=== PATIENT | male | born 1965 | race African-American/Black ===

== ENCOUNTER 2016-09-01 18:37 | Emergency (ER) | payer MEDICAID ==
--- NOTE | 2016-09-01 18:54 | ER Document Report ---
ED Medical Screen (RME) - General Stated Complaint: ABDOMINAL PAIN Notes: patient is a51 year old male with umbilical to LLQ pain that started 5 hours ago with n/v/d. still has his appendix. tenderness to palpation of the LLQ but not RLQ. no rebound tenderness I have greeted and performed a rapid initial assessment of this patient. A comprehensive ED assessment and evaluation of the patient, analysis of test results and completion of the medical decision making process will be conducted by additional ED providers. TRAVEL OUTSIDE OF THE [place] IN LAST 30 DAYS: No Past Medical History - Past Medical History Cardiac Medical History: Reports: Hx Hypertension Pulmonary Medical History: Reports: Hx COPD Psychiatric Medical History: Reports: Hx Depression
[2016-09-01] MEDS ORDERED: NORMAL SALINE 1000 ML 1,000 ML IV ONE (19:10)
[2016-09-01] MEDS ORDERED: LOPERAMIDE HCL 2 MG CAPSULE PO ONE (19:11)
[2016-09-01] MEDS ORDERED: ONDANSETRON HCL INJ/PF 4 MG/2 ML SDV IV ONE (19:11)
[2016-09-01 19:18] LABS: HEMATOCRIT 43.1 % (37.9-51.0); HEMOGLOBIN 14.5 g/dL (13.5-17.0); HGB HCT DIFFERENCE 0.4; MEAN CORPUSCULAR HEMOGLOBIN 29.9 pg (27.0-33.4); MEAN CORPUSCULAR HGB CONC 33.6 g/dL (32.0-36.0); MEAN CORPUSCULAR VOLUME 89 fl (80-97); RED BLOOD COUNT 4.84 10^6/uL (4.35-5.55); RED CELL DISTRIBUTION WIDTH 13.6 % (11.5-14.0)
[2016-09-01 19:39] LABS: BASOPHILS % (MANUAL) 0 % (0-2); EOSINOPHILS % (MANUAL) 1 % (0-6); LYMPHOCYTES % (MANUAL) 5 % (13-45); TOTAL CELLS COUNTED 100
--- NOTE | 2016-09-01 19:39 | ER Document Report ---
ED General - General Chief Complaint: Abdominal Pain Stated Complaint: ABDOMINAL PAIN Notes: Patient is a 51-year-old male with past medical history of anxiety and depression who presents with nausea, vomiting, diarrhea, generalized abdominal discomfort. States that he started having vomiting and diarrhea earlier today and has continued since that time. He has not tried anything to improve his symptoms. Nothing worsens his symptoms. Multiple sick contacts with similar illness. Described the abdominal pain is a generalized, cramping pain. This started after multiple episodes of diarrhea and vomiting. Pain is mild in nature. Nothing improves or worsens the pain. No prior history of abdominal surgeries. He has not seen his primary care physician regarding today's concerns. TRAVEL OUTSIDE OF THE [place] IN LAST 30 DAYS: No - Related Data Allergies/Adverse Reactions: No Known Allergies Allergy (Unverified 09/01/16 20:43) Past Medical History - General Information source: Patient - Social History Smoking Status: Current Every Day Smoker Chew tobacco use (# tins/day): No Frequency of alcohol use: None Drug Abuse: None Lives with: Family Family History: Reviewed & Not Pertinent Patient has suicidal ideation: No Patient has homicidal ideation: No - Past Medical History Cardiac Medical History: Reports: Hx Hypertension Pulmonary Medical History: Reports: Hx COPD Renal/ Medical History: Denies: Hx Peritoneal Dialysis Psychiatric Medical History: Reports: Hx Depression Review of Systems - Review of Systems Notes: Constitutional: Negative for fever. HENT: Negative for sore throat. Eyes: Negative for visual changes. Cardiovascular: Negative for chest pain. Respiratory: Negative for shortness of breath. Gastrointestinal: Positive for abdominal pain, vomiting and diarrhea. Genitourinary: Negative for dysuria. Musculoskeletal: Negative for back pain. Skin: Negative for rash. Neurological: Negative for headaches, weakness or numbness. 10 point ROS negative except as marked above and in HPI. Physical Exam - Vital signs Vitals: Temp Pulse Resp BP Pulse Ox 98.2 F 105 H 16 104/65 97 09/01/16 18:55 09/01/16 18:55 09/01/16 18:55 09/01/16 18:55 09/01/16 18:55 Interpretation: Tachycardic Notes: PHYSICAL EXAMINATION: GENERAL: Well-appearing, well-nourished and in no acute distress. HEAD: Atraumatic, normocephalic. EYES: Pupils equal round and reactive to light, extraocular movements intact, sclera anicteric, conjunctiva are normal. ENT: nares patent, oropharynx clear without exudates. Moist mucous membranes. NECK: Normal range of motion, supple without lymphadenopathy LUNGS: Breath sounds clear to auscultation bilaterally and equal. No wheezes rales or rhonchi. HEART: Regular rate and rhythm without murmurs ABDOMEN: Soft, nontender, normoactive bowel sounds. No guarding, no rebound. No masses appreciated. EXTREMITIES: Normal range of motion, no pitting or edema. No cyanosis. NEUROLOGICAL: No focal neurological deficits. Moves all extremities spontaneously and on command. PSYCH: Normal mood, normal affect. SKIN: Warm, Dry, normal turgor, no rashes or lesions noted. Course - Re-evaluation Re-evalutation: 09/01/16 19:39 Presentation of an overall well-appearing patient in no acute distress with complaints of nausea, vomiting, diarrhea. This is consistent with likely viral gastroenteritis. Patient has no abdominal tenderness on exam and specifically no tenderness in the RLQ, LLQ, RUQ. Overall well hydrated on exam. Able to tolerate oral intake here in the emergency department. Low clinical suspicion for any acute life-threatening etiology based on exam and history including acute cholecystitis, SBO, appendicitis, nephrolithiasis, or pylonephritis. CMP without evidence of acute hepatitis or significant dehydration. A CBC was obtained in triage: I did not believe this test was diagnostically useful. It does incidentally show a mild leukocytosis of 15. I do not believe this is clinically significant as patient does not have any clinical history to suggest a acute intra-abdominal pathology suspect this is secondary to patient's nausea , vomiting, and enteritis. At this time will discharge with return precautions and follow-up recommendations. Verbal discharge instructions given a the bedside and opportunity for questions given. Medication warnings reviewed. Patient is in agreement with this plan and has verbalized understanding of return precautions and the need for primary care follow-up in the next 24-72 hours. - Vital Signs Vital signs: Temp Pulse Resp BP Pulse Ox 98.2 F 91 15 127/74 H 99 09/01/16 21:40 09/01/16 21:40 09/01/16 21:40 09/01/16 21:40 09/01/16 21:40 - Laboratory Result Diagrams: 09/01/16 19:00 02/09/17 19:00 Laboratory results interpreted by me: 09/01/16 09/01/16 19:00 19:00 WBC 15.0 H Seg Neuts % (Manual) 85 H Lymphocytes % (Manual) 5 L Abs Neuts (Manual) 12.8 H Sodium 145.7 H Glucose 121 H Calcium 10.5 H Total Protein 8.3 H Discharge - Discharge Clinical Impression: Vomiting and diarrhea Condition: Good Disposition: HOME, SELF-CARE Additional Instructions: Your symptoms are likely due to a viral illness and should resolve in the next several days. You can take [id number] loperamide also known as Imodium as needed for diarrhea per box instructions. Continue to stay hydrated with plenty of solution such as Gatorade or Pedialyte. You are being prescribed Zofran to take as needed for nausea and vomiting. Please return if you develop severe abdominal pain, pass out, become unable to tolerate any oral fluids for 12 more hours, or any other symptoms that are concerning to you.
[2016-09-01 19:40] LABS: TOXIC GRANULATION SLIGHT
[2016-09-01 19:46] LABS: ALANINE AMINOTRANSFERASE 26 U/L (21-72); ALBUMIN 4.3 g/dL (3.5-5.0); ALKALINE PHOSPHATASE 91 U/L (38-126); ANION GAP 14 (5-19); ASPARTATE AMINO TRANSFERASE 25 U/L (17-59); BILIRUBIN,TOTAL 0.8 mg/dL (0.2-1.3); BLOOD UREA NITROGEN 12 mg/dL (7-20); CALCIUM 10.5 mg/dL (8.4-10.2); CARBON DIOXIDE 26 mmol/L (22-30); CHLORIDE 106 mmol/L (98-107); CREATININE RESULT 1.05 mg/dL (0.52-1.25); GLUCOSE 121 mg/dL (75-110); LIPASE 56.2 U/L (23-300); POTASSIUM 3.9 mmol/L (3.6-5.0); SODIUM 145.7 mmol/L (137-145); TOTAL PROTEIN 8.3 g/dL (6.3-8.2)
[2016-09-01] MEDS ORDERED: ONDANSETRON ODT 4 MG TAB (6 TAB/DSPK) PO PRN (20:02)
[2016-09-01 21:54] VITALS: BP 127/74
== END 2016-09-01 21:45 | disposition home or self-care (01) ==
LOC: ER 18:37
DX: R11.10 Vomiting, unspecified (principal); R19.7 Diarrhea, unspecified; R10.84 Generalized abdominal pain; F17.200 Nicotine dependence, unspecified, uncomplicated; I10 Essential (primary) hypertension; J44.9 Chronic obstructive pulmonary disease, unspecified
CPT/HCPCS: 99284; 96361; 96374; 36415; 83690; 85025; 80053; J3490; J2405; J7030

== ENCOUNTER 2016-10-22 20:01 | Emergency (ER) | payer MEDICAID ==
[2016-10-22] MEDS ORDERED: ASPIRIN 81 MG TABLET, CHEWABLE PO ONE (20:57)
[2016-10-22] MEDS ORDERED: OXYCODONE-ACETAMINOPHEN 5-325 MG TABLET PO ONE (22:44)
--- NOTE | 2016-10-22 22:48 | ER Document Report ---
ED Extremity Problem, Upper - General Chief Complaint: Arm Pain Stated Complaint: ARM PAIN Mode of Arrival: Ambulatory Information source: Patient Notes: 51-year-old male presents to the emergency department complaining of right arm pain. Patient reports onset of posterior upper right arm pain that radiates up to his posterior shoulder and right trapezius area. States pain began approximately one week ago but has worsened over the last 2 days. 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 States pain is worse with movement of right shoulder/arm and reports associated shortness of breath and right-sided chest pain and pain is at its worse. Denies fever, nausea or vomiting, hemoptysis, or paresthesias. TRAVEL OUTSIDE OF THE [place] IN LAST 30 DAYS: No - HPI Patient complains to provider of: Right, Arm, Shoulder Onset: Last week Recent injury: No Quality of pain: Achy, Sharp Severity of pain: Moderate, Persistent Pain Level: 4 Exacerbated by: Movement Relieved by: Rest, Positioning Similar symptoms previously: No Recently seen / treated by doctor: No - Related Data Allergies/Adverse Reactions: No Known Allergies Allergy (Verified 10/22/16 20:03) Past Medical History - General Information source: Patient - Social History Smoking Status: Current Every Day Smoker Chew tobacco use (# tins/day): No Frequency of alcohol use: Social Drug Abuse: None Lives with: Family Family History: Reviewed & Not Pertinent - Past Medical History Cardiac Medical History: Reports: Hx Hypertension Pulmonary Medical History: Reports: Hx COPD Renal/ Medical History: Denies: Hx Peritoneal Dialysis Psychiatric Medical History: Reports: Hx Depression Surgical Hx: Negative - Immunizations Hx Diphtheria, Pertussis, Tetanus Vaccination: Yes Review of Systems - Review of Systems Constitutional: No symptoms reported EENT: No symptoms reported Cardiovascular: See HPI Respiratory: See HPI Gastrointestinal: No symptoms reported Genitourinary: No symptoms reported Male Genitourinary: No symptoms reported Musculoskeletal: See HPI Skin: No symptoms reported Hematologic/Lymphatic: No symptoms reported Neurological/Psychological: No symptoms reported -: Yes All other systems reviewed and negative Physical Exam - Vital signs Vitals: Temp Pulse Resp BP Pulse Ox 98.7 F 85 18 135/84 H 99 10/22/16 20:03 10/22/16 20:03 10/22/16 20:03 10/22/16 20:03 10/22/16 20:03 - General General appearance: Appears well, Alert In distress: None - HEENT Head: Normocephalic, Atraumatic Eyes: Normal Pupils: PERRL - Respiratory Respiratory status: No respiratory distress Chest status: Tender, Pain on movement. No: Nontender, Chest mass, Ecchymosis, No pleuritic chest pain, Pain with cough, Pain with deep breathing, Wounds, Accessory muscle use, Prolonged expirations, Splinting, Other Breath sounds: Normal - CTAB Chest palpation: Tender - Mild tenderness to palpation to anterior right upper chest wall. No deformity, instability, crepitus, or bruising.. No: Flail segment, [place] frothy sputum, Purulent sputum, Subcutaneous emphysema, Sucking chest wound, Ecchymosis, Wounds, Other - Cardiovascular Rhythm: Regular Heart sounds: Normal auscultation Murmur: No Pulses: Normal: Radial Normal capillary refill: Yes - Abdominal Inspection: Normal Distension: No distension Bowel sounds: Normal Tenderness: Nontender Organomegaly: No organomegaly - Back Back: Normal, Nontender - Extremities General upper extremity: Normal inspection, Nontender, Normal color, Normal ROM , Normal strength, Normal temperature. No: Edema General lower extremity: Normal inspection, Nontender, Normal color, Normal ROM , Normal strength, Normal temperature, Normal weight bearing. No: Tender, Edema Shoulder: Tender - Tenderness to palpation to anterior and posterior right shoulder and right posterior tricep area as well as right superior trapezius musculature. Patient reports reproduced pain with palpation is the pain he has been feeling during this past week. Distal neurovascular function intact. No swelling, erythema, warmth, bruising, deformity, or instability., Limited ROM - Full but painful range of motion.. No: Normal, Nontender, Abrasion, Deformity, Dislocation, Ecchymosis, Instability, Laceration, Other Elbow: Normal, Nontender Forearm: Normal, Nontender Wrist: Normal, Nontender Hand: Normal, Nontender - Neurological Neuro grossly intact: Yes Cognition: Normal Orientation: AAOx4 [place] Coma Scale Eye Opening: Spontaneous [place] Coma Scale Verbal: Oriented [place] Coma Scale Motor: Obeys Commands [place] Coma Scale Total: 15 Speech: Normal Motor strength normal: LUE, RUE, LLE, RLE Sensory: Normal - Skin Skin Temperature: Warm Skin Moisture: Dry Skin Color: Normal Course - Re-evaluation Re-evalutation: 10/23/16 01:54 Pt hemodynamically stable, in no distress, afebrile. Pt's presentation and physical exam findings suggestive of non-specific musculoskeletal etiology. Noted to have T-wave inversion in anterior leads on EKG before and after pain control. Labs unremarkable including negative set of cadiac enzymes. Chest and shoulder xray show no acute or significant abnormality. Pt presentation not suggestive of HI, pulmonary embolus, or other emergent pulmonary or cardiovascular etiology at this time. pt appears stable for discharge and agrees with home care, follow-up, and ED return precautions. Pt presentation and findings were discussed with ED physician Dr. Kilpatrick who concurs with evaluation and treatment plan. - Vital Signs Vital signs: Temp Pulse Resp BP Pulse Ox 97.8 F 74 16 161/67 H 100 10/23/16 02:13 10/23/16 02:13 10/23/16 02:13 10/23/16 02:13 10/23/16 02:13 - Laboratory Result Diagrams: 10/22/16 22:47 10/22/16 22:47 Laboratory results interpreted by me: 10/22/16 10/22/16 22:47 22:47 Hgb 13.3 L RDW 14.2 H Glucose 123 H ALT 19 L - Diagnostic Test Radiology reviewed: Image reviewed, Reports reviewed - EKG Interpretation by Tx EKG shows normal: Sinus rhythm, [place], Intervals, QRS Complexes, ST-T Waves - T wave inversions in anterior leads Rate: Normal Rhythm: NSR When compared to previous EKG there are: Previous EKG unavailable Discharge - Discharge Clinical Impression: Right arm pain Condition: Stable Disposition: HOME, SELF-CARE Instructions: Arm Pain, Nonspecific ([facility]), Anti-Inflammatory Medication ([facility]), Muscle Relaxers ([facility]), Electrogram Abnormality ([facility]) Additional Instructions: Follow-up with your primary care provider tomorrow as discussed. Return to the emergency department for any worsening symptoms or concerns. Prescriptions: Methocarbamol [Robaxin 500 mg Tablet] 500 mg PO Q8HP PRN #10 tablet PRN Reason: Naproxen 500 mg PO BIDP PRN #10 tablet PRN Reason: Forms: Elevated Blood Pressure Referrals: LASHONDA AZLU MD [Primary Care Provider] - 10/24/16
[2016-10-22 23:13] LABS: ABSOLUTE BASOPHILS # (AUTO) 0.1 10^3/uL (0.0-0.2); ABSOLUTE EOSINOPHILS # (AUTO) 0.1 10^3/uL (0.0-0.6); ABSOLUTE LYMPHOCYTES (AUTO) 2.4 10^3/uL (0.5-4.7); ABSOLUTE MONOCYTES (AUTO) 0.6 10^3/uL (0.1-1.4); ABSOLUTE NEUT (AUTO) 3.2 10^3/uL (1.7-8.2); BASOPHILS % (AUTO) 0.8 % (0-2); EOSINOPHILS % (AUTO) 1.5 % (0-6); HEMATOCRIT 39.1 % (37.9-51.0); HEMOGLOBIN 13.3 g/dL (13.5-17.0); HGB HCT DIFFERENCE 0.8; LYMPHOCYTES % (AUTO) 37.8 % (13-45); MEAN CORPUSCULAR HGB CONC 33.9 g/dL (32.0-36.0); MEAN CORPUSCULAR VOLUME 88 fl (80-97); MONOCYTES % (AUTO) 9.4 % (3-13); RED BLOOD COUNT 4.42 10^6/uL (4.35-5.55); RED CELL DISTRIBUTION WIDTH 14.2 % (11.5-14.0); SEGMENTED NEUTROPHILS % (AUTO) 50.5 % (42-78); WHITE BLOOD COUNT 6.4 10^3/uL (4.0-10.5)
[2016-10-22 23:44] LABS: ALANINE AMINOTRANSFERASE 19 U/L (21-72); ALBUMIN 4.7 g/dL (3.5-5.0); ALKALINE PHOSPHATASE 79 U/L (38-126); ANION GAP 14 (5-19); ASPARTATE AMINO TRANSFERASE 21 U/L (17-59); BILIRUBIN,DIRECT 0.1 mg/dL (0.0-0.4); BILIRUBIN,TOTAL 0.8 mg/dL (0.2-1.3); BLOOD UREA NITROGEN 14 mg/dL (7-20); CALCIUM 10.2 mg/dL (8.4-10.2); CARBON DIOXIDE 27 mmol/L (22-30); CHLORIDE 103 mmol/L (98-107); CREATINE KINASE 164 U/L (55-170); CREATININE RESULT 1.01 mg/dL (0.52-1.25); GLUCOSE 123 mg/dL (75-110); POTASSIUM 3.8 mmol/L (3.6-5.0); SODIUM 143.6 mmol/L (137-145); TOTAL PROTEIN 7.3 g/dL (6.3-8.2)
[2016-10-22 23:56] LABS: CREATINE KINASE MB 1.16 ng/mL (<4.55)
[2016-10-22 23:58] LABS: TROPONIN I < 0.012 ng/mL
--- NOTE | 2016-10-23 00:11 | EKG REPORT ---
SEVERITY:- ABNORMAL ECG - SINUS RHYTHM PROBABLE LEFT ATRIAL ABNORMALITY NONSPECIFIC T ABNORMALITIES, ANTERIOR LEADS : Confirmed by: Tran Romano 23-Oct-2016 00:10:45
[2016-10-23] MEDS ORDERED: KETOROLAC TROMETHAMINE 60 MG/2 ML SDV IM ONE (01:11)
[2016-10-23 02:14] VITALS: BP 161/67
--- NOTE | 2016-10-23 21:11 | EKG REPORT ---
SEVERITY:- ABNORMAL ECG - SINUS RHYTHM NONSPECIFIC T ABNORMALITIES, ANTERIOR LEADS : Confirmed by: Emma Leger MD 23-Oct-2016 21:10:43
== END 2016-10-23 02:15 | disposition home or self-care (01) ==
LOC: ER 20:01
DX: M79.601 Pain in right arm (principal); J44.9 Chronic obstructive pulmonary disease, unspecified; R06.02 Shortness of breath; R07.9 Chest pain, unspecified; F17.200 Nicotine dependence, unspecified, uncomplicated; I10 Essential (primary) hypertension
CPT/HCPCS: 93005 ×2; 99284; 96372; 36415; 82553; 82550; 85025; 80053; 84484; 71020; 73030; 93010 ×2; J1885

== ENCOUNTER 2017-09-03 14:45 | Emergency (ER) | payer MEDICAID ==
--- NOTE | 2017-09-03 15:04 | ER Document Report ---
ED Medical Screen (RME) - General Chief Complaint: Psych Problem Stated Complaint: PSYCH EVAL Time Seen by Provider: 09/03/17 14:48 Mode of Arrival: Ambulatory Information source: Patient TRAVEL OUTSIDE OF THE [place] IN LAST 30 DAYS: No - HPI Patient complains to provider of: psych Onset: Other - pt. with long psych history is here for assessment by mobile crisis - Related Data Allergies/Adverse Reactions: No Known Allergies Allergy (Verified 09/03/17 14:46) Past Medical History - Past Medical History Cardiac Medical History: Reports: Hx Hypertension Pulmonary Medical History: Reports: Hx COPD Renal/ Medical History: Denies: Hx Peritoneal Dialysis Psychiatric Medical History: Reports: Hx Depression - Immunizations Hx Diphtheria, Pertussis, Tetanus Vaccination: Yes Physical Exam - Vital signs Vitals: Temp Pulse Resp BP Pulse Ox 98.9 F 84 16 151/82 H 95 09/03/17 14:52 09/03/17 14:52 09/03/17 14:52 09/03/17 14:52 09/03/17 14:52 Course - Vital Signs Vital signs: Temp Pulse Resp BP Pulse Ox 98.9 F 84 16 151/82 H 95 09/03/17 14:52 09/03/17 14:52 09/03/17 14:52 09/03/17 14:52 09/03/17 14:52
[2017-09-03] MEDS ORDERED: BENZTROPINE MESYLATE 1 MG TABLET PO ONE (15:10)
[2017-09-03] MEDS ORDERED: HALOPERIDOL 5 MG TABLET PO ONE (15:10)
[2017-09-03 15:30] LABS: ABSOLUTE LYMPHOCYTES (AUTO) 0.9 10^3/uL (0.5-4.7); ABSOLUTE MONOCYTES (AUTO) 0.6 10^3/uL (0.1-1.4); ABSOLUTE NEUT (AUTO) 8.1 10^3/uL (1.7-8.2); BASOPHILS % (AUTO) 0.3 % (0-2); HEMOGLOBIN 13.2 g/dL (13.5-17.0); LYMPHOCYTES % (AUTO) 9.6 % (13-45); MEAN CORPUSCULAR HEMOGLOBIN 30.6 pg (27.0-33.4); MEAN CORPUSCULAR HGB CONC 33.9 g/dL (32.0-36.0); MEAN CORPUSCULAR VOLUME 90 fl (80-97); MONOCYTES % (AUTO) 6.2 % (3-13); PLATELET COUNT 214 10^3/uL (150-450); RED BLOOD COUNT 4.32 10^6/uL (4.35-5.55); RED CELL DISTRIBUTION WIDTH 13.5 % (11.5-14.0); SEGMENTED NEUTROPHILS % (AUTO) 83.9 % (42-78); TOTAL CELLS COUNTED % (AUTO) 100 %; WHITE BLOOD COUNT 9.6 10^3/uL (4.0-10.5)
[2017-09-03 15:51] LABS: ALANINE AMINOTRANSFERASE 46 U/L (21-72); ALBUMIN 5.3 g/dL (3.5-5.0); ALKALINE PHOSPHATASE 80 U/L (38-126); ANION GAP 13 (5-19); ASPARTATE AMINO TRANSFERASE 83 U/L (17-59); BILIRUBIN,DIRECT 0.1 mg/dL (0.0-0.4); BILIRUBIN,TOTAL 0.6 mg/dL (0.2-1.3); BLOOD UREA NITROGEN 13 mg/dL (7-20); CALCIUM 10.3 mg/dL (8.4-10.2); CARBON DIOXIDE 28 mmol/L (22-30); CHLORIDE 104 mmol/L (98-107); GLUCOSE 138 mg/dL (75-110); POTASSIUM 4.2 mmol/L (3.6-5.0); SODIUM 144.8 mmol/L (137-145); TOTAL PROTEIN 7.9 g/dL (6.3-8.2)
--- NOTE | 2017-09-03 15:51 | ER Document Report ---
ED Psych Disorder / Suicide - General Chief Complaint: Psych Problem Stated Complaint: PSYCH EVAL Time Seen by Provider: 09/03/17 14:48 Mode of Arrival: Ambulatory Notes: Patient says that he is here to be evaluated for depression and no place better to go. Says he went to a local [facility] and some of the members brought him here for evaluation. Patient says he is feeling very "frustrated". He says he has a history of depression and paranoid schizophrenia and was on medications, including Wellbutrin and Risperdal, but he is out of those medicines. He says he has no place to go. Patient denies any suicidal thoughts or plan. TRAVEL OUTSIDE OF THE [place] IN LAST 30 DAYS: No - Related Data Allergies/Adverse Reactions: No Known Allergies Allergy (Verified 09/03/17 14:46) Past Medical History - General Information source: Patient - Social History Smoking Status: Current Every Day Smoker Chew tobacco use (# tins/day): No Frequency of alcohol use: Rare Drug Abuse: Cocaine, Marijuana Family History: Reviewed & Not Pertinent Patient has suicidal ideation: No Patient has homicidal ideation: No - Past Medical History Cardiac Medical History: Reports: Hx Hypertension Pulmonary Medical History: Reports: Hx COPD Musculoskeltal Medical History: Reports Other - Scoliosis Psychiatric Medical History: Reports: Hx Depression, Hx Schizophrenia - Immunizations Hx Diphtheria, Pertussis, Tetanus Vaccination: Yes Review of Systems - Review of Systems Notes: CONSTITUTIONAL : Denies fever. CARDIOVASCULAR: Denies chest pain. RESPIRATORY: Denies cough, chest congestion, or shortness of breath. GASTROINTESTINAL: Denies abdominal pain or nausea, vomiting, or diarrhea. GENITOURINARY: Denies difficulty or painful urinating, urinary frequency, blood in urine. Physical Exam - Vital signs Vitals: Temp Pulse Resp BP Pulse Ox 98.9 F 84 16 151/82 H 95 09/03/17 14:52 09/03/17 14:52 09/03/17 14:52 09/03/17 14:52 09/03/17 14:52 Interpretation: Normal - Notes Notes: PHYSICAL EXAMINATION: GENERAL: Well-appearing, no acute distress. Anxious. Waving both hands around throughout his conversation and says "that is the way I do it". Pleasant and cooperative. HEAD: Atraumatic, normocephalic. NECK: Normal range of motion, supple. LUNGS: Breath sounds clear and equal bilaterally. HEART: Regular rate and rhythm without murmurs heard. ABDOMEN: Soft, nontender. No guarding or rebound or masses felt. Neuro: No neurologic deficits. Sensory, motor, and coordination and reflexes are all normal. Psych: Hyperactive denies suicidal thoughts. Waving arms and talking very fast. Course - Re-evaluation Re-evalutation: 09/03/17 15:51 Patient has been evaluated by mental health. Patient is being sedated with 10 mg of Haldol and 1 mg of Cogentin. He will be kept on papers overnight for reassessment tomorrow morning. 09/03/17 18:26 Patient has settled down and is actually gone to sleep. 09/03/17 18:27 Patient's drug screen came back positive for opioids and for cocaine. 09/03/17 18:31 Patient's TSH is very low so I am ordering a free T4. - Vital Signs Vital signs: Temp Pulse Resp BP Pulse Ox 98.9 F 84 16 151/82 H 95 09/03/17 14:52 09/03/17 14:52 09/03/17 14:52 09/03/17 14:52 09/03/17 14:52 - Laboratory Result Diagrams: 09/03/17 15:13 09/03/17 15:13 Laboratory results interpreted by me: 09/03/17 09/03/17 09/03/17 15:13 15:13 15:13 RBC 4.32 L Hgb 13.2 L Seg Neutrophils % 83.9 H Lymphocytes % 9.6 L Glucose 138 H Calcium 10.3 H AST 83 H Albumin 5.3 H TSH 0.14 L Urine Protein Urine Urobilinogen Urine Ascorbic Acid 09/03/17 16:10 RBC Hgb Seg Neutrophils % Lymphocytes % Glucose Calcium AST Albumin TSH Urine Protein 100 H Urine Urobilinogen 2.0 H Urine Ascorbic Acid 40 H Discharge - Discharge Clinical Impression: Depression, Mental health disorder Condition: Stable
[2017-09-03 15:53] LABS: ALCOHOL < 10 mg/dL (NONE DETECTED)
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
[2017-09-03 16:38] LABS: APPEARANCE,URINE SLIGHTLY-CLOUDY; BILIRUBIN,URINE NEGATIVE (NEGATIVE); COLOR,URINE YELLOW; GLUCOSE, URINE NEGATIVE (NEGATIVE); KETONES,URINE NEGATIVE (NEGATIVE); LEUKOCYTE ESTERASE,URINE NEGATIVE (NEGATIVE); NITRITE,URINE NEGATIVE (NEGATIVE); PROTEIN,URINE 100 mg/dL (NEGATIVE); URINE SPECIFIC GRAVITY 1.031
[2017-09-03 16:56] LABS: URINE AMPHETAMINES SCREEN NEGATIVE; URINE BARBITURATES SCREEN NEGATIVE; URINE BENZODIAZEPINES SCREEN NEGATIVE; URINE COCAINE SCREEN UNCONFIRMED POSITIVE; URINE MARIJUANA (THC) SCREEN NEGATIVE; URINE METHADONE SCREEN NEGATIVE; URINE PHENCYCLIDINE SCREEN NEGATIVE
--- NOTE | 2017-09-03 20:51 | EKG REPORT ---
SEVERITY:- BORDERLINE ECG - SINUS RHYTHM PROBABLE LEFT ATRIAL ABNORMALITY BORDERLINE T ABNORMALITIES, ANTERIOR LEADS : Confirmed by: Tran Romano 03-Sep-2017 20:50:12
--- NOTE | 2017-09-04 09:42 | PSYCHOLOGICAL NOTE ---
Psych Note - Psych Note Psych Note: Reason for consult: Depression and Lkfobvrulhosj-Lp-[id number] Consent given: None Patient is a 52 year old man who was brought to the Emergency Department yesterday by his fellow [employer]uther[employer] members. Upon reassessment this morning, the patient was found to be resting comfortably with his breakfast at bedside. The patient was easily awakened and able to interact appropriately. Patient's presentation was calm and he did not exhibit psychomotor excitation as he did yesterday. Patient stated he was feeling "mentally drained" but calmer. He reported he did not have a place to stay but was interested in receiving resources for local homeless shelters. Patient stated he wanted outpatient resources to establish therapy and medication management. Patient's baseline schizophrenic presentation is thought to have been exacerbated by his positive cocaine and benzodiazapine toxicology screening. Patient was alert and oriented to person, place, time and circumstance. Mood was euthymic with congruent affect. Patient denied suicidal/homicidal ideation, intent or plan. Patient did not appear to be responding to internal stimuli as evidenced by maintaining appropriate eye contact, linear conversation and ability to stay on topic. Delusions and psychosis were not noted. Thought processes were organized and linear. Conversational speech was normal for rate, tone and prosody. Intellectual abilities were estimated in the average range. Attention and concentration were fair. Insight, judgment and impulse control were fair. 1. 298.9 (F29) Unspecified Schizophrenia Spectrum and Other Psychotic Disorder Impression/Plan: Recommend rescind IVC. Patient is psychiatrically clear. He no longer meets [place] G.S 122C IVC criteria. Patient denied suicidal/homicidal ideation, intent or plan. No psychosis or delusional behavior was observed. Patient still does not have a residence to return to and has no established provider therefore he has been given resources to establish mental health treatment as well as the homeless resource alf information. Patient has been [facility] to [facility] and [facility] to meet his mental health and housing needs. Consulted with Dr. Herndon regarding the care and management of this patient. ED physician in agreement with recommendation and disposition.
--- NOTE | 2017-09-04 10:39 | ER Document Report ---
Doctor's Note Notes: 09/04/17 10:38 Patient resting comfortably, easily aroused, no acute distress, vital signs stable. Patient states he feels better. The plan is for him to follow-up with outpatient counseling and is okay with this plan. Patient will be provided with a cab voucher for transfer to homeless longterm. The plan will be for outpatient follow-up at [facility]. 09/04/17 11:59
[2017-09-04 12:41] VITALS: BP 138/92
== END 2017-09-04 12:40 | disposition home or self-care (01) ==
LOC: ER 14:45
DX: F32.9 Major depressive disorder, single episode, unspecified (principal); T43.296A Underdosing of other antidepressants, initial encounter; F20.0 Paranoid schizophrenia; T43.596A Underdosing of other antipsychotics and neuroleptics, initial encounter; Z91.128 Patient's intentional underdosing of medication regimen for other reason; Z91.14 Patient's other noncompliance with medication regimen; F12.10 Cannabis abuse, uncomplicated; F14.10 Cocaine abuse, uncomplicated; F17.200 Nicotine dependence, unspecified, uncomplicated; I10 Essential (primary) hypertension; J44.9 Chronic obstructive pulmonary disease, unspecified; Z59.0 Homelessness
CPT/HCPCS: 93005; 99285; 36415; 84439; 80307 ×2; 84443; 85025; 80053; 81001; 93010; J3490 ×2

== ENCOUNTER 2017-11-13 01:59 | Emergency (ER) | payer MEDICAID, OTHER ==
--- NOTE | 2017-11-13 02:18 | ER Document Report ---
ED General - General Stated Complaint: PSYCH EVAL Time Seen by Provider: 11/13/17 02:10 Mode of Arrival: Medic Information source: Patient, Emergency Med Personnel Notes: 52-year-old male history of schizophrenia presents with delusions. 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 Patient denies any fevers or chills denies any nausea vomiting or diarrhea EMS was called out for assistance it appears patient was quite agitated was taking off his seatbelt in the ambulance and was putting staff harm TRAVEL OUTSIDE OF THE [place] IN LAST 30 DAYS: No - HPI Onset: Just prior to arrival Onset/Duration: Sudden Quality of pain: No pain Severity: Mild Pain Level: Denies Associated symptoms: Other Exacerbated by: Denies Relieved by: Denies Similar symptoms previously: Yes Recently seen / treated by doctor: Yes - Related Data Allergies/Adverse Reactions: No Known Allergies Allergy (Verified 09/03/17 14:46) Past Medical History - Social History Smoking Status: Never Smoker Cigarette use (# per day): No Chew tobacco use (# tins/day): No Smoking Education Provided: No Family History: Reviewed & Not Pertinent - Past Medical History Cardiac Medical History: Reports: Hx Hypertension Pulmonary Medical History: Reports: Hx COPD Renal/ Medical History: Denies: Hx Peritoneal Dialysis Psychiatric Medical History: Reports: Hx Depression, Hx Schizophrenia - Immunizations Hx Diphtheria, Pertussis, Tetanus Vaccination: Yes Review of Systems - Review of Systems Notes: REVIEW OF SYSTEMS: CONSTITUTIONAL : Denies fever, chills, or sweats. Denies recent illness. EENT: Denies eye, ear, throat, or mouth pain or symptoms. Denies nasal or sinus congestion or discharge. Denies throat, tongue, or mouth swelling or difficulty swallowing. CARDIOVASCULAR: Denies chest pain. Denies palpitations or racing or irregular heart beat. Denies ankle edema. RESPIRATORY: Denies cough, cold, or chest congestion. Denies shortness of breath, difficulty breathing, or wheezing. GASTROINTESTINAL: Denies abdominal pain or distention. Denies nausea, vomiting , or diarrhea. Denies blood in vomitus, stools, or per rectum. Denies black, tarry stools. Denies constipation. GENITOURINARY: Denies difficulty urinating, painful urination, burning, frequency, blood in urine, or discharge. MUSCULOSKELETAL: Denies back or neck pain or stiffness. Denies joint pain or swelling. SKIN: Denies rash, lesions or sores. HEMATOLOGIC : Denies easy bruising or bleeding. LYMPHATIC: Denies swollen, enlarged glands. NEUROLOGICAL: Denies confusion or altered mental status. Denies passing out or loss of consciousness. Denies dizziness or lightheadedness. Denies headache. Denies weakness or paralysis or loss of use of either side. Denies problems with gait or speech. Denies sensory loss, numbness, or tingling. Denies seizures. PSYCHIATRIC: Patient denies any suicidal homicidal ideations however does have speech ALL OTHER SYSTEMS REVIEWED AND NEGATIVE. Dictation was performed using [employer] voice recognition software PHYSICAL EXAMINATION: GENERAL: Well-appearing, well-nourished and in no acute distress. HEAD: Atraumatic, normocephalic. EYES: Pupils equal round and reactive to light, extraocular movements intact, sclera anicteric, conjunctiva are normal. ENT: Nares patent, oropharynx clear without exudates. Moist mucous membranes. NECK: Normal range of motion, supple without lymphadenopathy LUNGS: Breath sounds clear to auscultation bilaterally and equal. No wheezes rales or rhonchi. HEART: Regular rate and rhythm without murmurs ABDOMEN: Soft, nontender, nondistended abdomen. No guarding, no rebound. No masses appreciated. Musculoskeletal: Normal range of motion, no pitting or edema. No cyanosis. NEUROLOGICAL: Cranial nerves grossly intact. Normal speech, normal gait. Normal sensory, motor exams SKIN: Sores noted on skin PSYCH Rapid speech, patient is able to hold a conversation however must be redirected multiple times Discharge - Discharge Clinical Impression: Schizophrenia Qualifiers: Schizophrenia type: unspecified Qualified Code(s): F20.9 - Schizophrenia, unspecified Condition: Stable Disposition: PSYCH HOSP/UNIT
[2017-11-13 02:29] VITALS: BP 137/91
[2017-11-13 02:40] LABS: ABSOLUTE LYMPHOCYTES (AUTO) 1.9 10^3/uL (0.5-4.7); ABSOLUTE MONOCYTES (AUTO) 0.9 10^3/uL (0.1-1.4); BASOPHILS % (AUTO) 0.3 % (0-2); EOSINOPHILS % (AUTO) 0.5 % (0-6); HEMATOCRIT 38.9 % (37.9-51.0); HEMOGLOBIN 13.4 g/dL (13.5-17.0); LYMPHOCYTES % (AUTO) 21.7 % (13-45); MEAN CORPUSCULAR HEMOGLOBIN 30.3 pg (27.0-33.4); MEAN CORPUSCULAR HGB CONC 34.6 g/dL (32.0-36.0); MEAN CORPUSCULAR VOLUME 88 fl (80-97); MONOCYTES % (AUTO) 9.8 % (3-13); PLATELET COUNT 297 10^3/uL (150-450); RED BLOOD COUNT 4.44 10^6/uL (4.35-5.55); RED CELL DISTRIBUTION WIDTH 13.8 % (11.5-14.0); SEGMENTED NEUTROPHILS % (AUTO) 67.7 % (42-78); TOTAL CELLS COUNTED % (AUTO) 100 %; WHITE BLOOD COUNT 8.8 10^3/uL (4.0-10.5)
[2017-11-13 03:00] LABS: ACETAMINOPHEN < 10 ug/mL (10-30); ALANINE AMINOTRANSFERASE 26 U/L (21-72); ALBUMIN 4.9 g/dL (3.5-5.0); ALCOHOL < 10 mg/dL (NONE DETECTED); ALKALINE PHOSPHATASE 86 U/L (38-126); ANION GAP 18 (5-19); ASPARTATE AMINO TRANSFERASE 52 U/L (17-59); BILIRUBIN,DIRECT 0.3 mg/dL (0.0-0.4); BILIRUBIN,TOTAL 0.9 mg/dL (0.2-1.3); BLOOD UREA NITROGEN 24 mg/dL (7-20); CALCIUM 10.1 mg/dL (8.4-10.2); CARBON DIOXIDE 25 mmol/L (22-30); CHLORIDE 103 mmol/L (98-107); GLUCOSE 110 mg/dL (75-110); POTASSIUM 3.8 mmol/L (3.6-5.0); SALICYLATE < 1.0 mg/dL (2.0-20.0); SODIUM 145.8 mmol/L (137-145)
[2017-11-13 03:48] LABS: APPEARANCE,URINE CLEAR; BILIRUBIN,URINE NEGATIVE (NEGATIVE); COLOR,URINE YELLOW; GLUCOSE, URINE NEGATIVE (NEGATIVE); KETONES,URINE TRACE mg/dL (NEGATIVE); LEUKOCYTE ESTERASE,URINE NEGATIVE (NEGATIVE); NITRITE,URINE NEGATIVE (NEGATIVE); PROTEIN,URINE 30 mg/dL (NEGATIVE); UROBILINOGEN,URINE NEGATIVE mg/dL (<2.0)
[2017-11-13 04:00] LABS: URINE BARBITURATES SCREEN NEGATIVE; URINE BENZODIAZEPINES SCREEN NEGATIVE; URINE COCAINE SCREEN UNCONFIRMED POSITIVE; URINE MARIJUANA (THC) SCREEN UNCONFIRMED POSITIVE; URINE METHADONE SCREEN NEGATIVE; URINE PHENCYCLIDINE SCREEN NEGATIVE
--- NOTE | 2017-11-13 06:23 | EKG REPORT ---
SEVERITY:- BORDERLINE ECG - SINUS RHYTHM BORDERLINE T WAVE ABNORMALITIES : Confirmed by: Riccardo Herrera MD 13-Nov-2017 06:22:40
--- NOTE | 2017-11-13 17:33 | PSYCHOLOGICAL NOTE ---
Psych Note - Psych Note Psych Note: Reason for consult: Anxiety /Cocaine Use Eval: 2:00 pm Final Disposition 3:00 pm Contact Permissions: Patient's sister Juanpablo Dean ( does not have number, can' t remember) Patient is a 52-year-old male. Patient reports prior to coming to the emergency department he smoked "a blunt of weed". Patient reports he was also using cocaine throughout the last couple days and states that he used meth on Monday. Patient reports that he is experiencing the lows of substance abuse. Patient reports that he does not want to get help for his substance abuse and stated that he came to the hospital because he wants medications to help make him feel less anxious. Patient reports that he wanted to come back after he left AGAINST MEDICAL ADVICE last night because his sister works as a open pit quarry supervisor for dietary and states that she will "hook it up" for food stating that he has a special diet and wants his food to be brought to him by his sister. Patient reports he mainly came because of food and water. Patient reports he does not really know what he wants, just knows that he is "hungry as shit". Patient reports that mental [facility] has permission to get collateral information from his sister. Diagnosis: 292.89 (F 12.229) cannabis intoxication with use disorder, severe 292.9 (F 14.99) unspecified stimulant related disorder cocaine ; (F15.99) Amphetamine Impression/plan: Patient left AGAINST MEDICAL ADVICE before a final disposition could be made regarding patient. Clinician observed patient was intoxicated as evidenced by laughing inappropriately, appeared disheveled, tangential speech, and reported smoking marijuana and using cocaine prior to coming to the emergency department. Clinician did not have the opportunity to contact collateral information before he left, and did not have the opportunity to provide him with the resource sheet for substance abuse. Clinician did provide education about the effects of substance abuse and what substance intensive outpatient therapy and tells. Consulted with Dr. Herndon regarding the management and care of patient.
== END 2017-11-13 05:59 | disposition left against medical advice (07) ==
LOC: ER 01:59
DX: F20.9 Schizophrenia, unspecified (principal); I10 Essential (primary) hypertension; J44.9 Chronic obstructive pulmonary disease, unspecified; L98.499 Non-pressure chronic ulcer of skin of other sites with unspecified severity
CPT/HCPCS: 36415; 80053; 80307; 81001; 85025; 93005; 93010; 99285